=== PATIENT | female | born 1965 | race Hispanic/Latino ===

== ENCOUNTER → 2017-12-20 | Day surgery (SDC) | payer MEDICARE, OTHER ==
[~2017-12-20] MED LIST: ASPIR 8181 MG PO; CARVEDILOL3.125 MG PO; CRESTOR10 MG PO; EFFEXOR XR 3737.5 MG PO; EPHEDRINE SULFATE INJ 50 MG/10 ML SYR ONE; FENTANYL CITRATE/PF 100MCG/2 ML INJ ONE; HUMALOG100 UNIT/1 SC; HYOSCYAMINE SULFATE 0.5 MG/ML AMP ONE; INSULIN PUMP SC; LEVEMIR100 UNIT/1 SC; LEVOTHYROXINE50 MCG PO; LIDOCAINE HCL 2% LOCAL INJ 5 ML SDV VIAL INJ ONE; LOSARTAN POTASS25 MG PO; MIDAZOLAM HCL 2 MG/2 ML VIAL ONE; PANTOPRAZOLE SO40 MG PO; PROPOFOL IV EMULSION 10 MG/ML 50 ML VIAL ONE; RENAGEL800 MG PO; SODIUM CHLORIDE 0.9% 500ML 500 ML ONE; TORSEMIDE20 MG PO; TRADJENTA5 MG PO; VASCEPA PO; VIT D2 PO
--- OUTSIDE RECORDS SUMMARY | 2017-12-20 06:35 | XMS REPORT | Clinical Summary ---
Author Author [facility] [place] [facility] Address Unknown Phone Unavailable Care Team Providers Care Parts Assembler Name Role Phone Kalli Lamas MD PCP Allergies Active Allergy Reactions Severity Noted Date Comments Penicillins Dermatitis High 03/18/2016 Current Medications Prescription Sig. Disp. Refills Start End Date Status Date levothyroxine (SYNTHROID, Take 50 mcg by mouth Active LEVOXYL) 50 mcg tablet every morning. torsemide (DEMADEX) 20 MG Take 20 mg by mouth Active tablet daily. aspirin (ECOTRIN) 81 MG Take 81 mg by mouth Active enteric coated tablet daily. INSULIN ADMIN SUPPLIES Inject 40 Units under the Active SUBQ skin 3 (three) times a day. pantoprazole (PROTONIX) Take 40 mg by mouth Active 40 MG EC tablet daily. losartan (COZAAR) 25 MG Take 25 mg by mouth Active tablet daily. rosuvastatin (CRESTOR) 40 Take 40 mg by mouth Active MG tablet daily. sevelamer (RENVELA) 800 Take 800 mg by mouth 3 Active mg tablet (three) times a day with meals. 3 tablets with meals insulin lispro (HumaLOG Use 35 units with lunch 6 pen 6 08/22/20 Active KwikPen) 100 unit/mL and dinner 17 injection pen insulin DETEMIR (LEVEMIR Use 40 units in the 6 pen 6 08/22/20 Active FLEXPEN) 100 unit/mL (3 morning and 35 units at 17 mL) insulin pen night subcutaneously linagliptin (TRADJENTA) 5 Take 1 tablet (5 mg 90 tablet 1 08/22/20 Active mg tablet total) by mouth daily. 17 pen needle, diabetic 31 Inject 5 x day 500 each 6 08/22/20 Active gauge x 5/16" 17 needleIndications: Type 2 diabetes mellitus with hyperglycemia, with long-term current use of insulin linagliptin (TRADJENTA) 5 Take 5 mg by mouth daily. 08/22/20 Discontin mg tablet 17 ued insulin detemir (LEVEMIR) Inject 35 Units under the 08/22/20 Discontin 100 unit/mL injection skin 2 (two) times a day. 17 ued Active Problems Patient Care Coordination Note 2017 update complete - 2014 oncology report post 10 year uterine cancer on file ; mammogram and cardiology evaluation complete. Problem Noted Date Neuropathy 07/31/2017 Last Assessment & Plan: N. Arterial doppler study reviewed by me shows extensive calcification and TBI in moderate range. CTA in 2016 shows patent aorta and iliac arteries with diffuse plaque. Plan for Neurpathy medication adjustment per primary Trigger finger 07/31/2017 Last Assessment & Plan: Plan for hand referral. ESRD (end stage renal disease) 07/11/2017 Overview: Added automatically from request for surgery [id number] Steal syndrome as complication of dialysis access 201607/10/2017 S/P CABG x 1 201405/22/2017 Anemia Type 2 diabetes mellitus ESRD (end stage renal disease) on dialysis MWF 2013 Last Assessment & Plan: N. Patient with aneurysmal fistula. We discussed the etiology of fistulas including high flow, repeated venipunctures, depth the fistula, and outflow obstruction. We discussed the relative troubles with aneurysms including skin erosion, rupture, thrombosis, difficulty with access, progression, and the disfigurative aspects. We discussed treatment options including expectant management, flow reduction, treatment of outflow lesions, aneurysm reduction with possible recurrence, or abandonment and creation of new access. L AVF early aneusysm. Duplex reviewed by me shows volume flow of 1.9 L/min, mild steal. Not symtpomatic enough to intervene at this time. Will plan to observe her and repeat studies in 6 months. Coronary artery disease History of transfusion Hyperlipidemia Hypothyroidism Hypertension Peripheral vascular disease s/p L leg stent 2014, Left forearm arteries small, Right arm high bifurcation Stroke Uterine cancer 2006 s/p hysterectomy History of cholecystectomy Cataract Retinopathy due to secondary diabetes Encounters Date Type Specialty Care Team Description 12/17/2017 Office Visit Endocrinology Sharita Patel MD Controlled type 2 diabetes mellitus with insulin therapy (Primary Dx); Essential hypertension; History of coronary artery disease; Peripheral vascular disease s/p L leg stent 2014, Left forearm arteries small, Right arm high bifurcation; History of stroke; Acquired hypothyroidism; Retinopathy due to secondary diabetes; ESRD (end stage renal disease) on dialysis MWF 2013; Peripheral sensory neuropathy due to type 2 diabetes mellitus 12/12/2017 Lab Lab Clifford Apodaca MD 11/14/2017 Lab Lab Clifford Apodaca MD 10/16/2017 Documentation Endocrinology Sharita Patel MD 10/16/2017 Telephone Endocrinology Sharita Patel MD 09/14/2017 Documentation Transplant Kristy Rivera Dialysis Liaison Waitlist Update 09/10/2017 Office Visit Orthopedic Surgery Angie Alberto, Trigger middle finger of MD left hand (Primary Dx); Trigger finger of both hands; Trigger middle finger of right hand 09/05/2017 Lab Lab Clifford Apodaca MD 08/22/2017 Office Visit Endocrinology Sharita Patel MD Type 2 diabetes mellitus with hyperglycemia, with long-term current use of insulin (Primary Dx); Retinopathy due to secondary diabetes; Hx of CABG; History of stroke; Peripheral arterial disease; Peripheral sensory neuropathy due to type 2 diabetes mellitus; High triglycerides; Vitamin D deficiency; Hypothyroidism (acquired) 08/08/2017 Lab Lab Javier Peters MD 08/02/2017 Procedure Pass Ophthalmology 07/31/2017 Office Visit Cardiovascular Bob Myers MD ESRD ( end stage renal disease) on dialysis MWF 2013 (Primary Dx); Type 2 diabetes mellitus with other kidney complication; Trigger finger, unspecified finger, unspecified laterality 07/31/2017 Telephone Transplant Shira Shrestha MA Speak to Coordinator 07/25/2017 Telephone Cardiovascular Rachel Dang 07/11/2017 Hospital Radiology Germania Villalobos MD Pain in joint, multiple Encounter sites 07/11/2017 Lab Lab Germania Villalobos MD Pain in joint, multiple sites (Primary Dx); Effusion of hand joint, unspecified laterality 07/11/2017 Transcribe Access Germania Villalobos MD Pain in joint, multiple Orders sites (Primary Dx) 07/11/2017 Telephone Bob Lagos MD 07/11/2017 Prep for Bob Lagos MD ESRD (end stage renal Surgery disease) (Primary Dx) 07/10/2017 Documentation Cardiovascular Bob Myers MD Results 06/21/2017 Hospital Radiology Bob Myers MD ESRD (end stage renal Encounter disease) on dialysis 06/06/2017 Lab Clifford Duke MD 05/22/2017 Office Visit Cardiovascular Bob Myers MD ESRD ( end stage renal disease) on dialysis (Primary Dx) 05/22/2017 Documentation Transplant Kesha Vernon RN 05/17/2017 Telephone Transplant Michela Pierre MA Results 05/09/2017 Lab Clifford Duke MD 04/17/2017 Hospital Radiology Clifford Apodaca MD Type 2 diabetes mellitus Encounter with chronic kidney disease on chronic dialysis, with long-term current use of insulin; ESRD (end stage renal disease) on dialysis 04/17/2017 Telephone Transplant Dennis Nichols MA Inquiry about Appt 04/12/2017 [facility] Radiology Ellis Mariscal MD Fatty liver Encounter 04/11/2017 Lab Clifford Duke MD 04/10/2017 Documentation Transplant Jacob Serrano TXP - OPTUM & MCR AB - RENAL TXP APPRVL 04/05/2017 Transcribe Radiology Ellis Mariscal MD Fatty liver ( Primary Dx) Orders 04/05/2017 Documentation Transplant Kesha Vernon, TALIA 03/27/2017 Orders Only Cardiovascular Ellen Barber MA Complications due to renal dialysis device, implant, and graft, initial encounter (Primary Dx) 03/07/2017 Lab Clifford Duke MD 02/07/2017 Lab Clifford Duke MD 01/30/2017 Telephone Transplant Gillian Venegas MA PRA Kits 01/30/2017 Documentation Transplant Kesha Vernon RN 12/21/2016 Documentation Transplant Kesha Vernon RN 12/19/2016 Hospital Radiology Shona Em MD ESRD (end stage renal Encounter disease) 12/19/2016 Hospital Transplant Clifford Apodaca MD Type 2 diabetes mellitus Encounter with chronic kidney disease on chronic dialysis, with long-term current use of insulin (Primary Dx); ESRD (end stage renal disease) on dialysis 12/19/2016 Hospital Transplant Shona Em MD ESRD (end stage renal Encounter disease) 12/19/2016 Hospital Transplant Shona Em MD ESRD (end stage renal Encounter disease) after 12/19/2016 Family History Medical History Relation Name Comments Cancer Brother Heart disease Father Hypertension Father Liver disease Father Heart disease Maternal Grandfather Diabetes Maternal Grandmother Cancer Mother Diabetes Mother Kidney disease Mother Liver disease Mother Relation Name Status Comments Brother lymphoma Father Maternal Grandfather Maternal Grandmother Mother mother was on dialysis and had kidney cancer Social History Tobacco Use Types Packs/Day Years Used Date Former Smoker Comments: stopped < 10 years ago Sex Assigned at Date Recorded Not on file Last Filed Vital Signs Vital Sign Reading Time Taken Blood Pressure 98/64 12/17/2017 9:44 AM BENDING MACHINE SET UP OPERATOR Pulse 62 12/17/2017 9:44 AM BENDING MACHINE SET UP OPERATOR Temperature 35.7 C (96.2 F) 12/17/2017 9:44 AM BENDING MACHINE SET UP OPERATOR Respiratory Rate 14 07/31/2017 8:40 AM CDT Oxygen Saturation 100% 12/17/2017 9:44 AM BENDING MACHINE SET UP OPERATOR Inhaled Oxygen - - Concentration Weight 74.8 kg (165 lb) 12/17/2017 9:44 AM BENDING MACHINE SET UP OPERATOR Height 157.5 cm (5' 2") 12/17/2017 9:44 AM BENDING MACHINE SET UP OPERATOR Body Mass Index 30.18 12/17/2017 9:44 AM BENDING MACHINE SET UP OPERATOR Plan of Treatment Date Type Specialty Care Team Description 01/29/2018 Appointment Procedural Cardiology Bob Myers MD [address] [place] [address] [phone] 01/29/2018 Appointment Procedural Cardiology Bob Myers MD [address] [place] [address] [phone] 01/29/2018 Office Visit Cardiovascular Bob Myers MD [address] [place] [address] [phone] 04/22/2018 Office Visit Endocrinology Sharita Patel MD [address] [facility] [address] [place] [address] [phone] Health Maintenance Due Date Last Done Comments OPHTHALMOLOGY EXAM 1975 COLONOSCOPY 2015 MAMMOGRAM 2015 INFLUENZA VACCINE 06/05/2017 FOOT EXAM 08/22/2018 08/22/2017, 08/22/2017 PAP SMEAR 12/19/2019 12/19/2016, 02/23/2015 Implants Implanted Type Area Configuration Technician Device Expiration Model / Identifier Date Serial / Lot Device Vasclr Clsr Vasoactive Cardiovasc N/A: N/A 04/04/2018 [id number] / Intstnl Peptd 6fr Angio-Seal - ular / [id number] Implants [id number] Implanted: 06/21/2017 (Quantity not on file) Catheter Angio Delphi Programmer Ii 5fr 65cm Surgical N/A: N/A [facility] PERIPHERAL [id number] Selc Braidd Torque Elliott - [id number] Implants; INTERVENTION / Implanted: 04/12/2017 (Quantity not Expanders; VASCULAR CARMELLA / on file) Extenders; Surgical Wires Catheter Angio Delphi Programmer Ii 5fr Surgical N/A: N/A [facility] PERIPHERAL [id number] 0.035in 65cm Selc Braidd Torque - Implants; INTERVENTION / [id number] Expanders; VASCULAR CARMELLA / Implanted: 04/12/2017 (Quantity not Extenders; on file) Surgical Wires Procedures Procedure Name Priority Date/Time Associated Diagnosis Comments ME INJECT TENDON Routine 09/11/2017 Trigger finger of both Results for this SHEATH/LIGAMENT 11:31 AM BENDING MACHINE SET UP OPERATOR hands procedure are in the results section. after 12/19/2016 Results * POC glucose (12/17/2017 11:51 AM) Only the most recent of 6 results within the time period is included. Component Value Ref Range POC glucose 97Comment: fasting 65 - 100 Specimen Performing Laboratory Blood * POC glycosylated hemoglobin (Hb A1C) (12/17/2017 11:50 AM) Only the most recent of 2 results within the time period is included. Component Value Ref Range POC Hemoglobin A1C 6.1Comment: Fasting % Specimen Performing Laboratory Blood * Hand/Upper Extremity Injection/Arthrocentesis (09/11/2017 11:31 AM) Narrative Angie Alberto MD 09/11/2017 11:31 AM Hand/Upper Extremity Injection/Arthrocentesis Date/Time: 09/10/2017 1:31 PM Consent given by: patient Site marked: site marked Timeout: Immediately prior to procedure a time out was called to verify the correct patient, procedure, equipment, respiratory support technician and site/side marked as required Supporting Documentation Indications: diagnostic and pain Procedure Details Condition: trigger finger Site: Bilateral long finger Preparation: Patient was prepped and draped in the usual sterile fashion Right side: Needle size: 25 G Right long finger medications administered: 40 mg methylPREDNISolone acetate 40 mg/mL; 0.5 mL lidocaine 10 mg/mL (1 %) Patient tolerance: patient tolerated the procedure well with no immediate complications Left side: Needle size: 25 G Left long finger medications administered: 40 mg methylPREDNISolone acetate 40 mg/mL; 0.5 mL lidocaine 10 mg/mL (1 %) Patient tolerance: patient tolerated the procedure well with no immediate complications Platelet Rich Plasma Used: no PRP Used * Single antigen beads (09/05/2017 4:08 PM) Only the most recent of 4 results within the time period is included. Component Value Ref Range Single antigen beads See link below for PDF Lab Report Specimen Performing Laboratory [facility] DEPARTMENT OF PATHOLOGY AND GENOMIC MEDICINE [address] [place] [id number] * XR Hands 3 Vw Bilateral (07/11/2017 1:40 PM) Specimen Performing Laboratory [facility] [address] [place] [address] Narrative EXAMINATION:XR HANDS 3 VW BILATERAL CLINICAL HISTORY:M25.50 Pain in unspecified joint, hands COMPARISON:None. IMPRESSION: There is minimal juxta-articular osteoporosis with no signs of a systemic arthritis.There is vascular calcification. There is no evidence of acute hand fracture or dislocation. There are no radiopaque foreign bodies. [facility]-[id number] Procedure Note Interface, Radiology Results Incoming - 07/11/2017 1:49 PM CDT EXAMINATION: XR HANDS 3 VW BILATERAL CLINICAL HISTORY: M25.50 Pain in unspecified joint, hands COMPARISON: None. IMPRESSION: There is minimal juxta-articular osteoporosis with no signs of a systemic arthritis. There is vascular calcification. There is no evidence of acute hand fracture or dislocation. There are no radiopaque foreign bodies. [facility]-[id number] * Miscellaneous referral test (07/11/2017 12:48 PM) Component Value Ref Range Misc test name CCP IGA Misc test result see note Comment: Miscellaneous [facility] test code [id number] Misc [facility] See Note REFERENCE TESTS RESULT FLAG UNITS INTERVAL CCP Antibodies IgG/IgA 8 units 0 - 19 Negative <20 Weak positive 20 - 39 Moderate positive 40 - 59 Strong positive >59 Performed at: [facility], [address] [place] [id number] Test performed by: [facility] [address] [place], [place] [address] Specimen Performing Laboratory Blood [facility] [address] [place] [address] * Cyclic citrullinated peptide antibody, IgG (07/11/2017 12:48 PM) Component Value Ref Range Cyclic citrullin peptide <0.5 0.0 - 2.9 U/mL Ab Comment: Anti-cyclic citrullinated peptide (Anti-CCP) IgG antibodies are present in 60-80% of patients with rhuematoid arthritis (RA) and have specificity of 95-98%. These autoantibodies may be present in the preclinical phase of thedisease, are associated with future RA development and may be useful in predicting increased severity and erosive disease course. Specimen Performing Laboratory Serum [facility] DEPARTMENT OF PATHOLOGY AND GENOMIC MEDICINE [address] [place] [address] * Sedimentation rate (07/11/2017 12:48 PM) Component Value Ref Range Sedimentation rate 64 (H) 0 - 20 mm/hr Specimen Performing Laboratory Blood [facility] OF PATHOLOGY AND [address] [address] * Rheumatoid factor (07/11/2017 12:48 PM) Component Value Ref Range Rheumatoid factor <10 0 - 13 IU/mL Specimen Performing Laboratory Plasma specimen [facility] PATHOLOGY AND [address] [address] * C-reactive protein (07/11/2017 12:48 PM) Component Value Ref Range CRP <0.30 0.00 - 0.50 mg/dL Specimen Performing Laboratory Plasma specimen [facility] DEPARTMENT OF PATHOLOGY AND GENOMIC MEDICINE [address] [place] [address] * VALENCIA (07/11/2017 12:48 PM) Component Value Ref Range VALENCIA screen Not Detected Not-Detected Specimen Performing Laboratory Blood [facility] DEPARTMENT OF PATHOLOGY AND GENOMIC MEDICINE [address] [place] [address] * IR Angiogram Extremity Bilateral (06/21/2017 12:54 PM) Specimen Performing Laboratory [facility] [address] [place] [address] Narrative Performing Radiologist Lasha Paredes MD Assistants None Anesthesia Type Moderate sedation was administered by the procedure nurse and monitored by the procedure physician for a total [id number]-crmk sedation time of approximately 44 minutes. Lidocaine 1% was also used for local anesthetic. Pre Procedure Diagnosis end-stage renal disease. Arteriograms required for hemodialysis access planning. Post Procedure Diagnosis Status post arch aortogram and bilateral upper extremity arteriograms Procedure 1. Arch aortogram 2. Bilateral upper extremity arteriograms Technique Written informed consent was obtained prior to the procedure. The patient was placed in a supine position and the right groin was sterilely prepared and draped in the routine manner. Lidocaine 1% was used for local anesthetic. Using real-time ultrasound guidance, a 21-gauge micropuncture needle was used to access the right common femoral artery in a retrograde fashion. A 0.018 inch guidewire was advanced centrally through the needle under fluoroscopy. The needle was removed, and a micropuncture sheath system was then placed. The inner dilator and guidewire were then removed, and a 0.035 inch J-wire was advanced through the micropuncture sheath and into the abdominal aorta under fluoroscopy. The micropuncture sheath was removed, and a 5 -Marshallese vascular sheath was then placed. Under ultrasound guidance, documentation of vessel patency, needle access with permanent recording, and reporting are performed followed by placement of a sheath in the right common femoral artery. A right common femoral arteriogram was then performed with injection of contrast through the 5-Marshallese vascular sheath to evaluate the arterial access into the right common femoral artery. A 5-Marshallese pigtail catheter was advanced successfully into the ascending thoracic aorta. An arch aortogram was then performed with injection of contrast in the left anterior oblique projection. Exchange was then made for a 5-Marshallese multipurpose catheter which was used to select the left subclavian artery. Using a 0.035 inch angled Glidewire, both the catheter and guidewire were advanced successfully into the left axillary artery. Left upper extremity arteriograms were then performed with injection of contrast. Using a 0.035 inch J-wire, the multipurpose catheter was advanced into the proximal left brachial artery. Additional left upper extremity arteriograms were then performed with injection of contrast. Arteriograms performed with without compression of the left upper extremity arteriovenous fistula. Using a Glidewire, the multipurpose catheter was then pulled back and redirected to the brachiocephalic artery, and then the right subclavian and right axillary artery. Right upright extremity arteriograms were then performed with injection of contrast. Using the Glidewire, the multipurpose catheter was then advanced into the mid right brachial artery. Additional right upper extremity arteriograms were then performed injection of contrast. The multipurpose catheter was then removed [id number] from the 5-Marshallese vascular sheath. The 5-Marshallese vascular sheath was removed the right common femoral artery, and a 6 Marshallese Angio-Seal closure device was used for hemostasis. The patient tolerated the procedure well. Radiation Dose Ka,r=180 mGy Complications None Specimens Removed None Estimated Blood Loss Less than 1 mL Blood/Blood Products Administered None Grafts/Implants As described in the above report Impression: 1. An arch aortogram demonstrates a normal-appearing thoracic vertebral arteries. There is no great vessel origin stenosis off the thoracic aorta. The brachiocephalic trunk, right subclavian, visualized left common carotid, and left subclavian arteries are widely patent without narrowing. 2. Left upper extremity arteriogram demonstrates no significant axillary or brachial arch stenosis. 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 There is generally diminished filling of the arteries distal to the AV fistula within the left forearm and hand, however there is filling of the radial and ulnar arteries and of the palmar arch. Flow to the digits is diminished. With compression of the fistula, there is significant improved arterial flow to the left forearm and hand, suggesting steal physiology. The ulnar, radial and interosseous arteries are patent without significant stenoses. 3. Right upper extremity arteriograms demonstrate no significant axillary or brachial artery stenosis. There is a high origin of the radial artery on the right side, originating at the proximal humeral diaphysis. Normal location of origin of the ulnar and interosseous arteries. There is good perfusion of the arteries of the hand with a patent palmar arch. No significant stenoses are seen within the brachial , radial, ulnar or interosseous arteries. 4. A right common femoral arteriogram demonstrates a normal-appearing right common femoral artery without stenosis or dissection. Access into the right common femoral was deemed appropriate for placement of an Angio-Seal closure device, which was successfully deployed as described above. [facility]-[id number] Procedure Note [facility], Radiology Results Incoming - 06/21/2017 2:36 PM CDT Performing Radiologist Lasha Paredes MD Assistants None Anesthesia Type Moderate sedation was administered by the procedure nurse and monitored by the procedure physician for a total zeld-ni-ynhm sedation time of approximately 44 minutes. Lidocaine 1% was also used for local anesthetic. Pre Procedure Diagnosis end-stage renal disease. Arteriograms required for hemodialysis access planning. Post Procedure Diagnosis Status post arch aortogram and bilateral upper extremity arteriograms Procedure 1. Arch aortogram 2. Bilateral upper extremity arteriograms Technique Written informed consent was obtained prior to the procedure. The patient was placed in a supine position and the right groin was sterilely prepared and draped in the routine manner. Lidocaine 1% was used for local anesthetic. Using real-time ultrasound guidance, a 21-gauge micropuncture needle was used to access the right common femoral artery in a retrograde fashion. A 0.018 inch guidewire was advanced centrally through the needle under fluoroscopy. The needle was removed, and a micropuncture sheath system was then placed. The inner dilator and guidewire were then removed, and a 0.035 inch J-wire was advanced through the micropuncture sheath and into the abdominal aorta under fluoroscopy. The micropuncture sheath was removed, and a 5 -Marshallese vascular sheath was then placed. Under ultrasound guidance, documentation of vessel patency, needle access with permanent recording, and reporting are performed followed by placement of a sheath in the right common femoral artery. A right common femoral arteriogram was then performed with injection of contrast through the 5-Marshallese vascular sheath to evaluate the arterial access into the right common femoral artery. A 5-Marshallese pigtail catheter was advanced successfully into the ascending thoracic aorta. An arch aortogram was then performed with injection of contrast in the left anterior oblique projection. Exchange was then made for a 5-Marshallese multipurpose catheter which was used to select the left subclavian artery. Using a 0.035 inch angled Glidewire, both the catheter and guidewire were advanced successfully into the left axillary artery. Left upper extremity arteriograms were then performed with injection of contrast. Using a 0.035 inch J-wire, the multipurpose catheter was advanced into the proximal left brachial artery. Additional left upper extremity arteriograms were then performed with injection of contrast. Arteriograms performed with without compression of the left upper extremity arteriovenous fistula. Using a Glidewire, the multipurpose catheter was then pulled back and redirected to the brachiocephalic artery, and then the right subclavian and right axillary artery. Right upright extremity arteriograms were then performed with injection of contrast. Using the Glidewire, the multipurpose catheter was then advanced into the mid right brachial artery. Additional right upper extremity arteriograms were then performed injection of contrast. The multipurpose catheter was then removed [id number] from the 5-Marshallese vascular sheath. The 5-Marshallese vascular sheath was removed the right common femoral artery, and a 6 Marshallese Angio-Seal closure device was used for hemostasis. The patient tolerated the procedure well. Radiation Dose Ka,r=180 mGy Complications None Specimens Removed None Estimated Blood Loss Less than 1 mL Blood/Blood Products Administered None Grafts/Implants As described in the above report Impression: 1. An arch aortogram demonstrates a normal-appearing thoracic vertebral arteries. There is no great vessel origin stenosis off the thoracic aorta. The brachiocephalic trunk, right subclavian, visualized left common carotid, and left subclavian arteries are widely patent without narrowing. 2. Left upper extremity arteriogram demonstrates no significant axillary or brachial arch stenosis. 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 There is generally diminished filling of the arteries distal to the AV fistula within the left forearm and hand, however there is filling of the radial and ulnar arteries and of the palmar arch. Flow to the digits is diminished. With compression of the fistula, there is significant improved arterial flow to the left forearm and hand, suggesting steal physiology. The ulnar, radial and interosseous arteries are patent without significant stenoses. 3. Right upper extremity arteriograms demonstrate no significant axillary or brachial artery stenosis. There is a high origin of the radial artery on the right side, originating at the proximal humeral diaphysis. Normal location of origin of the ulnar and interosseous arteries. There is good perfusion of the arteries of the hand with a patent palmar arch. No significant stenoses are seen within the brachial , radial, ulnar or interosseous arteries. 4. A right common femoral arteriogram demonstrates a normal-appearing right common femoral artery without stenosis or dissection. Access into the right common femoral was deemed appropriate for placement of an Angio-Seal closure device, which was successfully deployed as described above. [facility]-[id number] * PT and PTT (05/22/2017 8:55 AM) Component Value Ref Range INR 1.0 0.8 - 1.2 Comment: Reference interval is for non-anticoagulated patients. Suggested INR therapeutic range for Vitamin K antagonist therapy: Standard Dose (moderate intensity therapeutic range): 2.0 - 3.0 Higher intensity therapeutic range 2.5 - 3.5 Prothrombin time 10.6 9.1 - 12.0 sec aPTT 29 24 - 33 sec Comment: This test has not been validated for monitoring unfractionated heparin therapy. aPTT-based therapeutic ranges for unfractionated heparin therapy have not been established. For general guidelines on Heparin monitoring, refer to the [facility] Directory of Services. Specimen Performing Laboratory Blood [facility] Narrative Performed at:[address] [place], [place] [id number] Maintenance Chief: Gregory Castellano MD, Phone:[phone] * CBC with platelet and differential (05/22/2017 8:55 AM) Only the most recent of 2 results within the time period is included. Component Value Ref Range WBC 7.0 3.4 - 10.8 x10E3/uL RBC 3.77 3.77 - 5.28 x10E6/uL HGB 11.0 (L) 11.1 - 15.9 g/dL HCT 32.4 (L) 34.0 - 46.6 % MCV 86 79 - 97 fL MCH 29.2 26.6 - 33.0 pg MCHC 34.0 31.5 - 35.7 g/dL RDW 16.1 (H) 12.3 - 15.4 % Platelet count 157 150 - 379 x10E3/uL Neutrophils 66 % Lymphocytes 21 % Monocytes 6 % Eosinophils 7 % Basophils 0 % Neutrophils, absolute 4.6 1.4 - 7.0 x10E3/uL Lymphocytes, absolute 1.5 0.7 - 3.1 x10E3/uL Monocytes, absolute 0.4 0.1 - 0.9 x10E3/uL Eosinophils, absolute 0.5 (H) 0.0 - 0.4 x10E3/uL Basophils, absolute 0.0 0.0 - 0.2 x10E3/uL Immature granulocytes 0 % Immature grans (abs) 0.0 0.0 - 0.1 x10E3/uL Specimen Performing Laboratory Blood [facility] Narrative Performed at:[id number] Maintenance Chief: Gregory Castellano MD, Phone:[phone] * Basic metabolic panel (05/22/2017 8:55 AM) Component Value Ref Range Glucose 137 (H) 65 - 99 mg/dL BUN, whole blood 37 (H) 6 - 24 mg/dL Creatinine 6.91 (H) 0.57 - 1.00 mg/dL EGFR Non-Afr. Citizen Of [place] 6 (L) >59 mL/min/1.73 EGFR 7 (L) >59 mL/min/1.73 BUN/creatinine ratio 5 (L) 9 - 23 Sodium 139 134 - 144 mmol/L Potassium 4.9 3.5 - 5.2 mmol/L Chloride 93 (L) 96 - 106 mmol/L CO2 23 18 - 29 mmol/L Calcium 9.2 8.7 - 10.2 mg/dL Specimen Performing Laboratory Blood [facility] Narrative Performed at:[address] [place], [place] [id number] Maintenance Chief: Gregory Castellano MD, Phone:[phone] * PV duplex arterial upper extremity (05/17/2017 3:00 PM) Specimen Performing Laboratory [facility] [address] [place] [address] Narrative PER[facility]HERAL VASCULAR LABORATORY Upper Extremity Arterial Duplex Report [address] [address] Pat.Name:ANGELICA BRAGG.ID:[id number] St.Date: 05/17/2017 Refer.MD:BOB MYERS MD Exam Time: 2:42:00 PMStudy Type:UE Arterial DOBAge:1965,51Y Sex: FEMALE Sonogrphr: Nayely Martinez. Stat.:Outpatient TapeVol: [place], [facility] - 4: 59351 Echo Event ID:[id number] Order ID:[id number] Reason for Study:Left upper extremity numbness and tingling. Left upper extremity AVF, ESRD Race:C SUMMARY: DUPLEX SCAN OBSERVATIONS (59520): LEFT: There is mild heterogeneous plaque in the brachial artery. Irregular hard plaque is visualized in the ulnar and radial arteries. The brachial artery bifurcates at the antecubital fossa.Decreased monophasic Doppler signals are noted in the radial and ulnar arteries. Colorflow is disturbed at the distal to the anastomosis in the brachial artery. DIGITAL PPG ANALYSIS: Compression of AVF AVG RIGHT LEFT PPrd digit waveform Normal Reduced Amplitude 2 Amplitude with AVF compression 7 Please see same day AVF duplex Technically difficult exam due to patient pain tolerance PHYSICIAN INTERPRETATION(83001): 1.<50% stenosis, left brachial, radial, and ulnar arteries 2.Positive physiologic steal study.Left third digit PPG amplitude increases from 2 to 7 mm with AVF compression 3.Decreased monophasic Doppler signals are noted in the left radial and ulnar arteries. MEASUREMENTS: DOPPLER Left Subclavian Mid Subclavian Why408 cm/s Left Axillary Mid Axillary Mid PS 206 cm/s Left Brachial Prox Brachial Prox P 368 cm/s Left Brachial Mid Brachial Mid PS 381 cm/s Left Brachial Dist Brachial Dist P 401 cm/s Radial Prox Radial Prox PSV57 cm/s Left Radial Prox 1 Radial Prox 1 P46 cm/s Left Radial Mid Radial Mid PSV46 cm/s Left Radial Dist Radial Dist PSV57 cm/s Left Ulnar Prox Ulnar Prox PSV60 cm/s Left Ulnar Mid Ulnar Mid PSV 42 cm/s Left Ulnar Dist Ulnar Dist PSV48 cm/s Left Brachial Dist 1 Brachial Dist 1 296 cm/s Signed 05/21/2017 11:41 AM Steffen Johnston MD, RPVI Procedure Note Interface, Radiology Results In - 05/21/2017 11:41 AM CDT PER[facility]HERAL VASCULAR LABORATORY Upper Extremity Arterial Duplex Report [address] [place] [address] Pat.Name: ANGELICA BRAGG Pat.ID: [id number] St.Date: 05/17/2017 Refer.MD: BOB MYERS MD Exam Time: 2:42:00 PM Study Type:UE Arterial Age: 11 1965,51Y Sex: FEMALE Sonogrphr: DEEPALI Martinez Pat. Stat.:Outpatient Tape Vol: TB, CPT - 4: 20058 Echo Event ID:[id number] Order ID: [id number] Reason for Study:Left upper extremity numbness and tingling. Left upper extremity AVF, ESRD Race: C SUMMARY: DUPLEX SCAN OBSERVATIONS (73531): LEFT: There is mild heterogeneous plaque in the brachial artery. Irregular hard plaque is visualized in the ulnar and radial arteries. The brachial artery bifurcates at the antecubital fossa. Decreased monophasic Doppler signals are noted in the radial and ulnar arteries. Colorflow is disturbed at the distal to the anastomosis in the brachial artery. DIGITAL PPG ANALYSIS: Compression of AVF AVG RIGHT LEFT PPrd digit waveform Normal Reduced Amplitude 2 Amplitude with AVF compression 7 Please see same day AVF duplex Technically difficult exam due to patient pain tolerance PHYSICIAN INTERPRETATION(56044): 1. <50% stenosis, left brachial, radial, and ulnar arteries 2. Positive physiologic steal study. Left third digit PPG amplitude increases from 2 to 7 mm with AVF compression 3. Decreased monophasic Doppler signals are noted in the left radial and ulnar arteries. MEASUREMENTS: DOPPLER Left Subclavian Mid Subclavian Mid 220 cm/s Left Axillary Mid Axillary Mid PS 206 cm/s Left Brachial Prox Brachial Prox P 368 cm/s Left Brachial Mid Brachial Mid PS 381 cm/s Left Brachial Dist Brachial Dist P 401 cm/s Radial Prox Radial Prox PSV 57 cm/s Left Radial Prox 1 Radial Prox 1 P 46 cm/s Left Radial Mid Radial Mid PSV 46 cm/s Left Radial Dist Radial Dist PSV 57 cm/s Left Ulnar Prox Ulnar Prox PSV 60 cm/s Left Ulnar Mid Ulnar Mid PSV 42 cm/s Left Ulnar Dist Ulnar Dist PSV 48 cm/s Left Brachial Dist 1 Brachial Dist 1 296 cm/s Signed 05/21/2017 11:41 AM Steffen Johnston MD, RPVI * PV duplex hemodialysis avg avf access (05/17/2017 2:30 PM) Specimen Performing Laboratory [facility] [address] [place] [address] Narrative PERIPHERAL VASCULAR LABORATORY AV Graft - Fistula Report [address] [place], [place] [facility].Name:ANGELICA BRAGG Pat.ID:[id number] .Date: 05/17/2017 Refer.MD:BOB MYERS MD Exam Time: 2:15:00 PMStudy Type:AV Graft - Fistula DOBAge:1965,51Y Sex: FEMALE Sonogrphr: Saima Rojas RVCARRIEat. Stat.:Outpatient TapeVol: TB, CPT - 4: 88623 Echo Event ID:[id number] Order ID:[id number] Reason for Study:Left upper extremity numbness and tingling. Left upper extremity AVF, ESRD Race:C SUMMARY: DUPLEX SCAN OBSERVATIONS: LEFT:The brachiocephalic AVF is well visualized.Disturbed, pulsatile colorflow and Doppler signals are noted in the feeding brachial artery, through the AVF anastomosis and into the draining cephalic vein.Increased colorflow disturbance is noted through the anastomosis. Diameter reduction is noted at the cephalic/axillary confluence with increased velocities and colorflow disturbance. VOLUME FLOW:Left brachial artery 1931 ml/min 1245 on 03/18/2015 Please see same day arterial duplex. PHYSICIAN INTERPRETATION: 1.Volume flow left brachial artery is 1931 ml/min, significantly increased from previous 1245 ml/min on 03/18/2015. 2.<50% juxta-anastomotic stenosis, left brachiocephalic AVF (ratio 1.46) 3.>50% stenosis of the left cephalic/ axillary vein confluence (ratio 3.28) MEASUREMENTS: GRAFT Left Brachial A Mid Brachiocephalic:AV Fistula Brachial A Ige626 cm/s Left Anastomosis Brachiocephalic:AV Fistula Anast SJS281 cm/s Left Cephalic Dist Up Arm Brachiocephalic:AV Fistula Cephalic Dist U 143 cm/s Left Cephalic Mid Up Arm Brachiocephalic:AV Fistula Cephalic Mid Up 108 cm/s Left Cephalic Prox Up Arm Brachiocephalic:AV Fistula Cephalic Prox U 127 cm/s Left Cephalic Shoulder Brachiocephalic:AV Fistula Cephalic Should 119 cm/s Left Ceph/Axillary Confl. Brachiocephalic:AV Fistula Ceph/Axillary C 391 cm/s Left Axillary V Mid Brachiocephalic:AV Fistula Axillary V Gpd848 cm/s Left Axillary V Central Brachiocephalic:AV Fistula Axillary V Cent 124 cm/s Left Subclavian V Mid Brachiocephalic:AV Fistula Subclavian V Mi 139 cm/s Left Subclavian V Central Brachiocephalic:AV Fistula Subclavian V Ce 128 cm/s Signed 05/21/2017 11:47 AM Steffen Johnston MD, RPVI Procedure Note Interface, Radiology Results In - 05/21/2017 11:47 AM CDT PER[facility]HERAL [facility]ASC[facility] LABORATORY AV Graft - Fistula Report [address] [place] [address] Pat.Name: ANGELICA BRAGG Pat.ID: [id number] .Date: 05/17/2017 Refer.MD: BOB MYERS MD Exam Time: 2:15:00 PM Study Type:AV Graft - Fistula Age: 11 1965,51Y Sex: FEMALE Sonogrphr: DEEPALI Martinez Pat. Stat.:Outpatient Tape Vol: TB, CPT - 4: 75725 Echo Event ID:[id number] Order ID: [id number] Reason for Study:Left upper extremity numbness and tingling. Left upper extremity AVF, ESRD Race: C SUMMARY: DUPLEX SCAN OBSERVATIONS: LEFT: The brachiocephalic AVF is well visualized. Disturbed, pulsatile colorflow and Doppler signals are noted in the feeding brachial artery, through the AVF anastomosis and into the draining cephalic vein. Increased colorflow disturbance is noted through the anastomosis. Diameter reduction is noted at the cephalic/axillary confluence with increased velocities and colorflow disturbance. VOLUME FLOW: Left brachial artery 1931 ml/min 1245 on 03/18/2015 Please see same day arterial duplex. PHYSICIAN INTERPRETATION: 1. Volume flow left brachial artery is 1931 ml/min, significantly increased from previous 1245 ml/min on 03/18/2015. 2. <50% juxta-anastomotic stenosis, left brachiocephalic AVF (ratio 1.46) 3. >50% stenosis of the left cephalic/ axillary vein confluence (ratio 3.28) MEASUREMENTS: GRAFT Left Brachial A Mid Brachiocephalic:AV Fistula Brachial A Mid 400 cm/s Left Anastomosis Brachiocephalic:AV Fistula Anast PSV 586 cm/s Left Cephalic Dist Up Arm Brachiocephalic:AV Fistula Cephalic Dist U 143 cm/s Left Cephalic Mid Up Arm Brachiocephalic:AV Fistula Cephalic Mid Up 108 cm/s Left Cephalic Prox Up Arm Brachiocephalic:AV Fistula Cephalic Prox U 127 cm/s Left Cephalic Shoulder Brachiocephalic:AV Fistula Cephalic Should 119 cm/s Left Ceph/Axillary Confl. Brachiocephalic:AV Fistula Ceph/Axillary C 391 cm/s Left Axillary V Mid Brachiocephalic:AV Fistula Axillary V Mid 140 cm/s Left Axillary V Central Brachiocephalic:AV Fistula Axillary V Cent 124 cm/s Left Subclavian V Mid Brachiocephalic:AV Fistula Subclavian V Mi 139 cm/s Left Subclavian V Central Brachiocephalic:AV Fistula Subclavian V Ce 128 cm/s Signed 05/21/2017 11:47 AM Steffen Johnston MD, RPVI * CTA Abdominal Aorta And Bilateral Iliofemoral Runoff W Wo Contrast (2016 3:45 PM) Specimen Performing Laboratory [address] [address] Narrative EXAMINATION:CT ANGIOGRAM ABDOMINAL AORTA AND BILATERAL ILIOFEMORAL RUNOFF W WO CONTRAST CLINICAL HISTORY:E11.22 Type 2 diabetes mellitus with diabetic chronic kidney disease, N18.6 End stage renal disease, transplant evaluation update TECHNIQUE: Multiple CT angiographic images of the abdomen, pelvis, and bilateral lower extremities were obtained during intravenous administration of iodinated contrast. Multiple computerized reformatted images as well as 3-D volume rendered images were also obtained. CT imaging was performed with iterative reconstruction technique and/or automated exposure control to reduce radiation dose. COMPARISON:None. IMPRESSION: CTA: 1.Small atherosclerotic calcifications in the abdominal aorta and its branches. The abdominal aorta is widely patent without evidence of aneurysmal dilation, dissection, or stenosis. 2.The celiac artery, SMA, and MARGARITO are widely patent. 3.The bilateral renal arteries are diminutive throughout their course but grossly patent. 4.Small atherosclerotic calcifications in the bilateral common iliac arteries to the level of the bifurcation. The common iliac, external iliac, and internal iliac arteries are normal caliber, widely patent, and have no evidence of stenosis or dissection. 5.Right lower extremity: In line flow through the common femoral artery into the superficial femoral artery. Multifocal segments of low grade stenosis throughout the superficial femoral artery. The femoral profunda artery is widely patent. Short segment of approximately 50% stenosis at the adductor hiatus extending to the proximal popliteal artery. In-line flow through the popliteal artery into the trifurcation. Calcifications in the calf arteries limit evaluation. The anterior tibial artery is grossly patent throughout its course with flow into the dorsalis pedis artery. Multifocal segments of likely high-grade stenosis and possibly occlusive disease in the peroneal and posterior tibial arteries. Small peripheral flow or reconstitution of flow in the distal peroneal artery with branches supplying the plantar arteries. No definite flow in the mid to distal posterior tibial artery. 6.Left lower extremity: In line flow through the common femoral artery into the superficial femoral and femoral profunda arteries. Multifocal segments of low grade stenosis throughout the superficial femoral and popliteal arteries. The flow in the left calf is similar to the right with peripheral arterial calcifications limiting the evaluation. The anterior tibial artery is grossly patent throughout its course with flow into the dorsalis pedis artery. Multifocal segments of high- grade stenosis and likely occlusive disease in the peroneal and posterior tibial arteries. Small peripheral flow or reconstitution of flow in the distal peroneal artery with branches supplying the plantar arteries. No definite flow in the posterior tibial artery. CT: 1.Minimal dependent atelectasis in the visualized lung bases. 2.Normal liver. The common bile duct is top normal caliber post cholecystectomy. Normal adrenals, spleen, and pancreas. 3.Atrophic [place] kidneys. Simple appearing cyst in the interpolar right kidney. 4.Normal stomach and small bowel. Moderate stool in the colon. Few colonic diverticula without CT evidence of diverticulitis. 5.Small foci of air in the nondependent bladder, recommend correlation for recent catheterization. Infectious etiology is less likely. Hysterectomy. No free fluid. 6.Stippled appearing lesion in the medial right femoral condyle, likely low- grade chondroid lesion. Additional scattered sclerotic foci in the femurs and pelvis, likely small bone islands. [id number] Procedure Note Hm Interface, Radiology Results Incoming - 04/17/2017 4:49 PM CDT EXAMINATION: CT ANGIOGRAM ABDOMINAL AORTA AND BILATERAL ILIOFEMORAL RUNOFF W WO CONTRAST CLINICAL HISTORY: E11.22 Type 2 diabetes mellitus with diabetic chronic kidney disease, N18.6 End stage renal disease, transplant evaluation update TECHNIQUE: Multiple CT angiographic images of the abdomen, pelvis, and bilateral lower extremities were obtained during intravenous administration of iodinated contrast. Multiple computerized reformatted images as well as 3-D volume rendered images were also obtained. CT imaging was performed with iterative reconstruction technique and/or automated exposure control to reduce radiation dose. COMPARISON: None. IMPRESSION: CTA: 1. Small atherosclerotic calcifications in the abdominal aorta and its branches. The abdominal aorta is widely patent without evidence of aneurysmal dilation, dissection, or stenosis. 2. The celiac artery, SMA, and MARGARITO are widely patent. 3. The bilateral renal arteries are diminutive throughout their course but grossly patent. 4. Small atherosclerotic calcifications in the bilateral common iliac arteries to the level of the bifurcation. The common iliac, external iliac, and internal iliac arteries are normal caliber, widely patent, and have no evidence of stenosis or dissection. 5. Right lower extremity: In line flow through the common femoral artery into the superficial femoral artery. Multifocal segments of low grade stenosis throughout the superficial femoral artery. The femoral profunda artery is widely patent. Short segment of approximately 50% stenosis at the adductor hiatus extending to the proximal popliteal artery. In-line flow through the popliteal artery into the trifurcation. Calcifications in the calf arteries limit evaluation. The anterior tibial artery is grossly patent throughout its course with flow into the dorsalis pedis artery. Multifocal segments of likely high-grade stenosis and possibly occlusive disease in the peroneal and posterior tibial arteries. Small peripheral flow or reconstitution of flow in the distal peroneal artery with branches supplying the plantar arteries. No definite flow in the mid to distal posterior tibial artery. 6. Left lower extremity: In line flow through the common femoral artery into the superficial femoral and femoral profunda arteries. Multifocal segments of low grade stenosis throughout the superficial femoral and popliteal arteries. The flow in the left calf is similar to the right with peripheral arterial calcifications limiting the evaluation. The anterior tibial artery is grossly patent throughout its course with flow into the dorsalis pedis artery. Multifocal segments of high- grade stenosis and likely occlusive disease in the peroneal and posterior tibial arteries. Small peripheral flow or reconstitution of flow in the distal peroneal artery with branches supplying the plantar arteries. No definite flow in the posterior tibial artery. CT: 1. Minimal dependent atelectasis in the visualized lung bases. 2. Normal liver. The common bile duct is top normal caliber post cholecystectomy. Normal adrenals, spleen, and pancreas. 3. Atrophic [place] kidneys. Simple appearing cyst in the interpolar right kidney. 4. Normal stomach and small bowel. Moderate stool in the colon. Few colonic diverticula without CT evidence of diverticulitis. 5. Small foci of air in the nondependent bladder, recommend correlation for recent catheterization. Infectious etiology is less likely. Hysterectomy. No free fluid. 6. Stippled appearing lesion in the medial right femoral condyle, likely low- grade chondroid lesion. Additional scattered sclerotic foci in the femurs and pelvis, likely small bone islands. [id number] * Surgical pathology request (04/12/2017 10:26 AM) Component Value Ref Range Surgical pathology report See link below for PDF Lab Report Specimen Performing Laboratory [facility] DEPARTMENT OF PATHOLOGY AND GENOMIC MEDICINE [address] [place] [address] * IR Transjugular Liver Biopsy (04/12/2017 10:10 AM) [place]imen [place] [address] Narrative Procedure: Transjugular liver biopsy Performing Radiologist: Willie Chung MD Assistants: None Anesthesia Type: Under physician supervision, Versed and fentanyl were administered intravenously for moderate sedation. Pulse oximetry, heart rate, and blood pressure were continuously monitored by independent trained observer. The physician spent 24 minutes [id number] sedation time with the patient. Lidocaine 1% was used for local anesthesia. Preprocedure Diagnosis: K76.0 Fatty (change of) livernot elsewhere classified, FATTY LIVER Post Procedure Diagnosis: Status post transjugular liver biopsy, hepatic venogram, and pressure measurements. Technique: Written informed consent was obtained prior to the procedure. The patient was brought to the fluoroscopy suite and placed supine on the table. The right neck was prepped and draped in usual sterile fashion. 1% lidocaine was used for local anesthesia. Under real-time ultrasound guidance, a 21-gauge micropuncture needle was advanced into the right internal jugular vein. Through the needle, a 0.018 inch mandril wire was advanced centrally. The needle was exchanged for a 5 [place]ese micropuncture introducer sheath over the wire. The wire and inner dilator were removed and a 0.035 inch Amplatz wire was advanced through the sheath into the inferior vena cava. The soft tissues were dilated. A 10 Marshallese long vascular sheath was advanced over the wire into the inferior vena cava. Through the sheath, a 5 [place]ese multipurpose catheter was used to select the right hepatic vein. A right hepatic venogram was performed with the injection of contrast. Free hepatic vein pressure, wedge hepatic vein pressure, and right atrial pressures were then measured. The multipurpose catheter was exchanged for a transjugular liver biopsy device over the wire. 4 18-gauge core biopsy specimens were obtained from the right hepatic lobe and sent to pathology for analysis. All instruments were removed and hemostasis was achieved with manual pressure. Radiation Dose: Ka,r=48 mGy Complications: None Specimens Removed: 4 18-gauge core biopsy specimens from the right hepatic lobe. Estimated Blood Loss: Less than 1 mL Blood/Blood Products Administered: None Grafts/Implants: As described in the above report. Findings: 1.Normal hepatic venogram 2.Ultrasound shows an anechoic compressible right internal vein. 3.Measured pressures are as follows: Right atrial pressure: 9 mmHg Free hepatic vein pressure:11 mmHg Wedge hepatic vein pressure:16 mmHg Impression: Uncomplicated transjugular liver biopsy. [facility]-[id number] Procedure Note [facility], Radiology Results Incoming - 04/12/2017 5:45 PM CDT Procedure: Transjugular liver biopsy Performing Radiologist: Willie Chung MD Assistants: None Anesthesia Type: Under physician supervision, Versed and fentanyl were administered intravenously for moderate sedation. Pulse oximetry, heart rate, and blood pressure were continuously monitored by independent trained observer. The physician spent 24 minutes hgdm-he-fqjr sedation time with the patient. Lidocaine 1% was used for local anesthesia. Preprocedure Diagnosis: K76.0 Fatty (change of) liver not elsewhere classified, FATTY LIVER Post Procedure Diagnosis: Status post transjugular liver biopsy, hepatic venogram, and pressure measurements. Technique: Written informed consent was obtained prior to the procedure. The patient was brought to the fluoroscopy suite and placed supine on the table. The right neck was prepped and draped in usual sterile fashion. 1% lidocaine was used for local anesthesia. Under real-time ultrasound guidance, a 21-gauge micropuncture needle was advanced into the right internal jugular vein. Through the needle, a 0.018 inch mandril wire was advanced centrally. The needle was exchanged for a 5 Marshallese micropuncture introducer sheath over the wire. The wire and inner dilator were removed and a 0.035 inch Amplatz wire was advanced through the sheath into the inferior vena cava. The soft tissues were dilated. A 10 Marshallese long vascular sheath was advanced over the wire into the inferior vena cava. Through the sheath, a 5 Marshallese multipurpose catheter was used to select the right hepatic vein. A right hepatic venogram was performed with the injection of contrast. Free hepatic vein pressure, wedge hepatic vein pressure, and right atrial pressures were then measured. The multipurpose catheter was exchanged for a transjugular liver biopsy device over the wire. 4 18-gauge core biopsy specimens were obtained from the right hepatic lobe and sent to pathology for analysis. All instruments were removed and hemostasis was achieved with manual pressure. Radiation Dose: Ka,r=48 mGy Complications: None Specimens Removed: 4 18-gauge core biopsy specimens from the right hepatic lobe. Estimated Blood Loss: Less than 1 mL Blood/Blood Products Administered: None Grafts/Implants: As described in the above report. Findings: 1. Normal hepatic venogram 2. Ultrasound shows an anechoic compressible right internal vein. 3. Measured pressures are as follows: Right atrial pressure: 9 mmHg Free hepatic vein pressure: 11 mmHg Wedge hepatic vein pressure: 16 mmHg Impression: Uncomplicated transjugular liver biopsy. [facility]-[id number] * XR Chest 2 Vw (12/19/2016 9:36 AM) Specimen Performing Laboratory [facility] [address] [place] [address] Narrative EXAMINATION:XR CHEST 2 VW CLINICAL HISTORY:Transplant evaluation update Order diagnosis - End stage renal disease COMPARISON:08/03/2015 TECHNIQUE: Frontal and lateral views of the chest obtained. IMPRESSION: Status-post CABG. Cardiomediastinal silhouette is enlarged, similar to prior. Better inspiratory depth than before. Pulmonary vasculature within normal limits. Mild scarring and/or atelectasis in the left lung base. Lungs and pleural space otherwise clear. Cholecystectomy. 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 IMPRESSION: Status-post CABG. Cardiomediastinal silhouette is enlarged, similar to prior. Better inspiratory depth than before. Pulmonary vasculature within normal limits. Mild scarring and/or atelectasis in the left lung base. Lungs and pleural space otherwise clear. Cholecystectomy. [facility]-[id number] * EKG 12-LEAD (12/19/2016 8:51 AM) Component Value Ref Range Ventricular rate 71 Atrial rate 71 ME interval 158 QRSD interval 102 QT interval 444 QTC interval 482 P axis 1 30 QRS axis 1 -27 T wave axis 28 EKG impression Normal sinus rhythm-Possible Left atrial enlargement-Anterior infarct (cited on or before 29-JUL-2015)-Abnormal ECG-In automated comparison with ECG of 31-JUL-2015 05:30,-T wave inversion no longer evident in Lateral leads-QT has lengthened- Specimen Performing Laboratory [facility] MUSE [address] [place] [id number] * C1Q class 1 & 2 antibody (12/19/2016 8:40 AM) Component Value Ref Range C1Q class 1 & 2 antibody See link below for PDF Lab Report Specimen Performing Laboratory [facility] DEPARTMENT OF PATHOLOGY AND GENOMIC MEDICINE [address] [place] [address] Narrative Annual Patient Meng-cb-OlzbitozkCwcafqd 5 Yellow ACDE (10ml); 2 Red Top (10ml) HLA Auto XM (AXMHL) Single Antigen Bead (SAB) C1q (HC1Q) * TB T-SPOT (12/19/2016 8:40 AM) Component Value Ref Range TB T-SPOT see note Comment: T-SPOT TUBERCULOSIS Nil Control: 0 Panel A: 0 Panel B: 0 Positive Control: TMTC Result: NEGATIVE NOTE: TMTC INDICATES TOO MANY SPOTS TO COUNT SAT INDICATES THE WELL WAS SATURATED RESULTS INTERPRETATION: RESULTS ARE NEGATIVE WHEN (PANEL A-NIL) OR (PANEL B-NIL) <=4 SPOTS, INCLUDING VALUES LESS THAN ZERO. RESULTS ARE POSITIVE WHEN (PANEL A-NIL) OR (PANEL B-NIL) >=8 SPOTS RESULTS ARE BORDERELINE WHEN EITHER (PANEL A-NIL) OR (PANEL B-NIL)=5,6,0R 7. THE TEST IS INVALID WHEN EITHER OF THE FOLLOWING CONDITIONS IS MET: 1.) THE NIL CONTROL HAS >10 SPOTS 2.) THE MITOGEN (POSITIVE CONTROL) HAS <20 SPOTS AND BOTH (PANEL A-NIL) AND (PANEL B-NIL) <=4 SPOTS. M. TUBERCULOSIS INFECTION UNLIKELY, BUT CANNOT BE EXCLUDED ESPECIALLY WHEN: 1. ANY ILLNESS IS CONSISTENT WITH TB DISEASE. 2. LIKELIHOOD OF PROGRESSION TO DISEASE (e.g. DUE TO IMMUNOSUPPRESSION) IS INCREASED. LIMITATIONS: DIAGNOSING OR EXCLUDING TUBERCULOSIS DISEASE, AND ASSESSING THE PROBABILITY OF LTBI, REQUIRES A COMBINATION OF EPIDEMIOLOGICAL, HISTORICAL, MEDICAL, AND DIAGNOSTIC FINDINGS THAT SHOULD BE TAKEN INTO ACCOUNT WHEN INTERPRETING T-SPOT.TB REFER TO THE MOST RECENT CDC GUIDANCE (HTTP: //WWW.CDC.GOV/NCHSTP/TB) FOR DETAILED RECOMMENDATIONS ABOUT DIAGNOSING TB INFECTION (INCLUDING DISEASE) AND SELECTING PERSONS FOR TESTING. 1.) A FALSE NEGATIVE RESULT CAN BE CAUSED BY INCORRECT BLOOD SAMPLE COLLECTION OR IMPROPER HANDLING OF THE SPECIMEN, AFFECTING LYMPHOCYTE FUNCTION 2.) THE PERFORMANCE OF T-SPOT.TB HAS NOT BEEN ADEQUATELY EVALUATED WITH SPECIMENS FROM INDIVIDUALS YOUNGER THAN AGE 17 YEARS, IN WOMEN, AND IN PATIENTS WITH HEMOPHILIA. 3-) A FALSE POSITIVE RESULT WAS OBTAINED FOR T-SPOT.TB WHEN TESTED IN SUBJECTS WITH M. XENOPI, M. KANSASII, AND M. GORDONAE. WHILE ESAT-6 AND CFP-10 ANTIGENS ARE ABSENT FROM BCG STRAINS OF M. BOVIS AND FROM MOST ENVIRONMENTAL MYCOBACTERIA, IT IS POSSIBLE THAT A POSITIVE T-SPOT.TB RESULT MAY BE DUE TO INFECTION WITH M. KANSASII, M. SZULGAI, M. GORDONAE, OR M. MARINUM. ALTERNATIVE TESTS WOULD BE REQUIRED IF THESE INFECTIONS ARE SUSPECTED. 4.) A NEGATIVE TEST RESULT DOES NOT EXCLUDE THE POSSIBILITY OF EXPOSURE TO, OR INFECTION WITH, M. TUBERCULOSIS. PATIENTS WITH RECENT EXPOSURE TO TB INFECTED INDIVIDUALS EXHIBITING A NEGATIVE T-SPOT.TB RESULT SHOULD BE CONSIDERED FOR RETESTING WITHIN 6 WEEKS OR IF OTHER RELEVANT CLINICAL SYMPTOMS INDICATE POSSIBLE INFECTION. 5.) A POSITIVE TEST RESULT DOES NOT RULE IN ACTIVE TB DISEASE; OTHER TESTS SHOULD BE PERFORMED TO CONFIRM THE DIAGNOSIS OF ACTIVE TB DISEASE SUCH SPUTUM SMEAR AND CULTURE, PCR AND CHEST RADIOGRAPHY. 6.) T-SPOT.TB TEST HAS NOT BEEN EVALUATED IN SUBJECTS WHO HAVE RECEIVED >1 MONTH OF ANTI-TB THERAPY. 7. ) REFRIGERATED AND FROZEN SAMPLES ARE NOT RECOMMENDED FOR USE WITH T=SPOT.TB TEST. Performed by: [facility] Molecular Tuberculosis Laboratory [facility] ([id number]) [place], [place] [address] Specimen Performing Laboratory [facility] [address] [place] [address] * HLA autologous crossmatch, AHG (12/19/2016 8:40 AM) Component Value Ref Range HLA autologous crossmatch See link below for PDF Lab Report Specimen Performing Laboratory [facility] DEPARTMENT OF PATHOLOGY AND GENOMIC MEDICINE [address] [place] [address] [facility] Annual Patient Vytx-du-YmitcyxrhGsvyhmy 5 Yellow ACDE (10ml); 2 Red Top (10ml) HLA Auto XM (AXMHL) Single Antigen Bead (SAB) C1q (HC1Q) * Hepatitis B surface Ab, quantitative (12/19/2016 8:40 AM) Component Value Ref Range Hepatitis B surface Ab 547.41 IU/L Comment: The anti-HBs is greater than or equal to 10 IU/L. This patient has either had an antibody response to HBV vaccination, received a transfusion, or has recovered from HBV infection. This patient should be considered immune to hepatitis B. An anti-HBs result greater than or equal to 10 IU/L implies immunity. For post-vaccination antibody testing guidelines for the general public refer to MMWR October 27, 2005/Vol. 54(No. 16);1-23, and for healthcare workers refer to MMWR October 24, 2013/Vol. 62(No. 10);1-19. Reference Interval: anti-HBs 9.99 IU/L or less ....... Negative 10.00 IU/L or greater .... Positive Results greater than 1,000.00 IU/L are reported as greater than 1,000.00 IU/L. Performed by [facility], [address] [place] [address] [email or web address], Ramiro Delarosa MD - Lab. Director Specimen Performing Laboratory [facility] [address] [place] [address] * Estimated GFR (12/19/2016 8:40 AM) Component Value Ref Range GFR Non Af Amer 7 (A) mL/min/1.73 m2 GFR Af Amer 8 (A) mL/min/1.73 m2 Comment: Chronic kidney disease: <60 mL/min/1.73m2 Kidney failure: <15 mL/min/1.73m2 The estimated GFR is calculated from the IDMS-traceable Modification of Diet in Renal Disease Equation. The accuracy of the calculation is poor when the creatinine is normal. Calculated values >90 mL/min/1.73m2 are not reported. This equation has not been validated in children (<18 years), women, the elderly (>70 years), or ethnic groups other than Caucasians and Americans. Specimen Performing Laboratory Plasma specimen [facility] [place] [address] * Hepatitis C antibody (12/19/2016 8:40 AM) Component Value Ref Range Hepatitis C Ab Non-reactive Non-reactive Specimen Performing Laboratory Blood [facility] [place] [address] * Cytomegalovirus Ab, IgM (12/19/2016 8:40 AM) Component Value Ref Range Cytomegalovirus Ab, IgM NegativeComment: Negative: CMV IgM antibodies were Negative not detected. Specimen Performing Laboratory Serum [facility] [place] [address] * Hepatitis B core antibody total (12/19/2016 8:40 AM) Component Value Ref Range Hepatitis B core total Ab Non-reactive Non-reactive Specimen Performing Laboratory Blood [facility] [place] [address] * Hepatitis C virus quantitative by PCR (12/19/2016 8:40 AM) Component Value Ref Range Hepatitis C quantitative, Not-Detected Not-Detected IU/mL PCR Hepatitis C quantitative, See link below for PDF Lab ReportComment: Case PCR Number: [id number] Specimen Performing Laboratory Blood [facility] [place] [address] * C-peptide (12/19/2016 8:40 AM) Component Value Ref Range C-peptide 15.0 (H) 1.1 - 4.4 ng/mL Specimen Performing Laboratory Plasma specimen [facility] [place] [address] * HIV 1, 2 antibody (12/19/2016 8:40 AM) Component Value Ref Range HIV 1, 2 antibody Non-reactive Non-reactive Comment: Starting from February 01 2016, 4th generation HIV screening and confirmation assays are in use at [facility], consistent with the CDC-recommended algorithm. The screening test detects antibodies to HIV-1, HIV-2 and the p24 antigen. Positive screening results will be automatically reflexed to a HIV-1/HIV-2 differentiation assay. Indeterminant HIV-1 results will be further automatically reflexed to a nucleic acid test for detection of acute infection. Western blot will no longer be performed as a confirmation test. For a quick reference guide on the testing algorithm, please refer to: http://stacks.cdc.gov/view/cdc/24731. Specimen Performing Laboratory Blood [facility] DEPARTMENT OF PATHOLOGY AND GENOMIC MEDICINE [address] [place] [address] * Hepatitis B surface antibody (12/19/2016 8:40 AM) Component Value Ref Range Hepatitis B surface Ab Reactive (A) Non-reactive Specimen Performing Laboratory Blood [facility] [place] [address] * Hepatitis B surface antigen (12/19/2016 8:40 AM) Component Value Ref Range Hepatitis B surface Ag Non-reactive Non-reactive Specimen Performing Laboratory Blood [facility] DEPARTMENT OF PATHOLOGY AND GENOMIC MEDICINE [address] [place] [address] * Cytomegalovirus Ab, IgG (12/19/2016 8:40 AM) Component Value Ref Range Cytomegalovirus Ab, IgG NegativeComment: Negative; No CMV IgG antibodies Negative were detected. Specimen Performing Laboratory Serum [facility] DEPARTMENT OF PATHOLOGY AND GENOMIC MEDICINE [address] [place] [address] * Partial thromboplastin time (12/19/2016 8:40 AM) Component Value Ref Range PTT 29.6 23.0 - 36.0 sec Comment: PTT therapeutic range for unfractionated heparin is 61.0-112.0 seconds which corresponds to Anti-Xa 0.3-0.7 U/ml. Specimen Performing Laboratory Blood [facility] PATHOLOGY [facility] GENOMIC MEDICINE [address] [place] [address] * Prothrombin time with INR (12/19/2016 8:40 AM) Component Value Ref Range Prothrombin time 14.4 12.0 - 15.0 sec INR 1.1 Comment: The International Normalized Ratio (INR) is a therapeutic monitoring tool for patients who are stable on oral anticoagulant therapy. An INR of 2.0-3.0 is suggested for deep vein thrombosis/pulmonary embolism. Specimen Performing Laboratory Blood [facility] DEPARTMENT OF PATHOLOGY AND [facility] MEDICINE [address] [place] [address] * Triglycerides (12/19/2016 8:40 AM) Component Value Ref Range Triglycerides 308 (H) <150 mg/dL Specimen Performing Laboratory Plasma specimen [facility] DEPARTMENT OF PATHOLOGY AND [facility] MEDICINE [address] [place] [address] * Phosphorus level (12/19/2016 8:40 AM) Component Value Ref Range Phosphorus 5.3 (H) 2.4 - 4.5 mg/dL Specimen Performing Laboratory Plasma specimen [facility] DEPARTMENT OF PATHOLOGY AND GENOMIC MEDICINE [address] [place] [address] * Parathyroid hormone (12/19/2016 8:40 AM) Component Value Ref Range PTH 402 (H) 15 - 65 pg/mL Specimen Performing Laboratory Blood [facility] DEPARTMENT PATHOLOGY AND [address] [address] * LDH (12/19/2016 8:40 AM) Component Value Ref Range LDH 168 87 - 225 U/L Specimen Performing Laboratory Plasma specimen [facility] DEPARTMENT PATHOLOGY [address] [address] * Hemoglobin A1c (12/19/2016 8:40 AM) Component Value Ref Range Hemoglobin A1C 8.5 (H) 4.0 - 5.6 % Comment: HbA1c cutoffs for diagnosing diabetes: 4.0% - 5.6%=normal 5.7% - 6.4%=increased risk for diabetes (prediabetes) >=6.5%=diabetes Goals for glycemic control (ADA 2016) < 7.0% Target for non adults with diabetes. More or less stringent targets may be appropriate for individual patients. <7.5% Target for Children and adolescents with type 1 diabetes. Specimen Performing Laboratory Blood [facility] DEPARTMENT OF PATHOLOGY AND GENOMIC MEDICINE [address] [place] [address] * Cholesterol (12/19/2016 8:40 AM) Component Value Ref Range Cholesterol 76 <200 mg/dL Specimen Performing Laboratory Plasma specimen [facility] DEPARTMENT PATHOLOGY AND [facility] MEDICINE [address] [place] [address] * Comprehensive metabolic panel (12/19/2016 8:40 AM) Component Value Ref Range Sodium 137 135 - 148 mEq/L Potassium 4.2 3.5 - 5.0 mEq/L Chloride 92 (L) 98 - 112 mEq/L CO2 27 24 - 31 mEq/L Anion gap 18 (H) 7 - 15 mEq/L Comment: Starting from February , anion gap calculation no longer incorporates potassium. Please note the change. BUN 39 (H) 6 - 20 mg/dL Creatinine 6.3 (H) 0.5 - 0.9 mg/dL Glucose 191 (H) 65 - 99 mg/dL Calcium 8.9 8.3 - 10.2 mg/dL Protein 7.2 6.3 - 8.3 g/dL Comment: [place] 4.6-7.0 g/dL 1 week 4.4-7.6 g/dL 7 months-1year 5.1-7.3 g/dL 1-2 years 5.6-7.5 g/dL >3 years 6.0-8.0 g/dL 18-150 6.3-8.3 g/dL Albumin 3.2 (L) 3.5 - 5.0 g/dL A/G ratio 0.8 0.7 - 3.8 Alkaline phosphatase 87 35 - 104 U/L AST 39 (H) 10 - 35 U/L ALT 23 5 - 50 U/L Total bilirubin 0.4 0.0 - 1.2 mg/dL Specimen Performing Laboratory Plasma specimen [facility] DEPARTMENT OF PATHOLOGY AND GENOMIC MEDICINE [address] [place] [address] after 12/19/2016 Insurance Payer Benefit Subscriber ID Type Phone Address Plan / Group MEDICARE MEDICARE xxxxxxxxxx Medicare [place], [place] PART A AND B [facility] xxxxxxxxx HMO/PPO THCARE CHOICE/CHO ICE + ANGELICA BRAGG Transplant Self 1965 Home: [address] [place] [address]
--- NOTE | 2017-12-20 11:09 | Operative Report ---
DATE OF PROCEDURE: December 20, 2017 REFERRING PHYSICIAN: Dr. Kalli Mera PROCEDURES PERFORMED 1. Esophagogastroduodenoscopy with biopsies. 2. Colonoscopy with polypectomy and biopsies. INDICATIONS FOR EGD: Upper abdominal pain and excessive belching. INDICATIONS FOR COLONOSCOPY: Colorectal cancer screening and personal history of colon polyps. MEDICATION: Patient was done under MAC. Please see anesthesiologist's note. PROCEDURE: With the patient in the left lateral decubitus position, the flexible fiberoptic Olympus gastroscope was introduced into the esophagus under direct visualization without any difficulty. There was some patchy erythema noted in the distal esophagus. The scope was then advanced with ease into the stomach. Mucosa overlying the antrum and the body revealed some patchy erythema and mild to moderate edema, and biopsies were obtained and sent to stain for H. pylori. Minute hyperplastic appearing polyps were noted in the body of the stomach. Some were partially excised with the cold biopsy forceps. The pylorus appeared to be of normal contour and shape. It was intubated with ease. The scope was advanced all the way to the 2nd portion of the duodenum. An approximately 9 mm sessile flat lesion was noted in the proximal aspect of the ascending colon proximal to the ampulla that was biopsied. The duodenal bulb appeared to be within normal limits. The scope was then withdrawn back into the stomach and retroflexed. The mucosa overlying the fundus and the cardia appeared to be within normal limits. The scope was then straightened out. The stomach was decompressed. The scope was subsequently withdrawn. Patient tolerated the procedure well. IMPRESSION 1. Distal esophagitis, mild. 2. Gastritis, biopsied. Biopsies sent to stain for Helicobacter pylori. 3. Gastric polyps, some partially excised with the cold biopsy forceps. 4. Approximately 9 mm sessile polypoid lesion in the proximal 2nd portion proximal to the ampulla, biopsied. PLAN: Follow up histology. Initiate Protonix 40 mg 1 p.o. q.a.m. and a.c. Patient was then turned around. After adequate lubrication of the anal canal, a flexible fiberoptic Olympus colonoscope was inserted into the rectum with ease and advanced all the way to the cecum. It was then withdrawn slowly. Mucosa overlying the cecum and ascending colon appeared to be within normal limits. One polyp was snared from the transverse colon. The mucosa overlying the descending and the sigmoid revealed some patchy mild inflammatory changes. Multiple random biopsies were obtained. Some diverticular disease was noted in the distal descending and the sigmoid colon. One polyp was hot biopsied from the sigmoid colon. One polyp was hot biopsied from the rectum. The scope was then retroflexed into the distal rectum, and the area around the dentate line grossly appeared to be within normal limits. The scope was then straightened out. The rectosigmoid area, as well as the distal rectal area were decompressed. The scope was subsequently withdrawn. Patient tolerated the procedure well. IMPRESSION 1. Transverse colon polyp, snared. 2. Mild patchy left-sided colitis. 3. Diverticulosis. 4. Sigmoid colon polyp, hot biopsied. 5. Rectal polyp, hot biopsied. PLAN: Follow up histology. Initiate VSL #3 one p.o. b.i.d. Patient will need a followup colonoscopy in 3 years. Job#: [id number] RI cc:KALLI MERA MD
== END | disposition home or self-care (01) ==
LOC: OR 06:33
PROVIDERS: ATTEND Internal Medicine Gastroenterology
DX: Z12.11 Encounter for screening for malignant neoplasm of colon (principal); D12.5 Benign neoplasm of sigmoid colon; K62.1 Rectal polyp; K31.7 Polyp of stomach and duodenum; K29.70 Gastritis, unspecified, without bleeding; K51.50 Left sided colitis without complications; K21.9 Gastro-esophageal reflux disease without esophagitis; K20.9 Esophagitis, unspecified; K31.9 Disease of stomach and duodenum, unspecified; K57.30 Diverticulosis of large intestine without perforation or abscess without bleeding; I25.810 Atherosclerosis of coronary artery bypass graft(s) without angina pectoris; E03.9 Hypothyroidism, unspecified; E11.22 Type 2 diabetes mellitus with diabetic chronic kidney disease; I13.2 Hypertensive heart and chronic kidney disease with heart failure and with stage 5 chronic kidney disease, or end stage renal disease; N18.6 End stage renal disease; I50.9 Heart failure, unspecified; I69.398 Other sequelae of cerebral infarction; R41.3 Other amnesia; Z01.810 Encounter for preprocedural cardiovascular examination; Z79.4 Long term (current) use of insulin; Z99.2 Dependence on renal dialysis; Z68.30 Body mass index [BMI] 30.0-30.9, adult; Z95.1 Presence of aortocoronary bypass graft
CPT/HCPCS: 36415; 43239; 45384; 45385; 82948; 84132; 88305; 88312; 93005; J1980; J2001; J2250; J7040; 45380

== ENCOUNTER → 2017-12-25 | Outpatient (CLI) | payer MEDICARE, OTHER ==
[~2017-12-25] MED LIST changes: -EPHEDRINE SULFATE INJ 50 MG/10 ML SYR ONE; -FENTANYL CITRATE/PF 100MCG/2 ML INJ ONE; -HYOSCYAMINE SULFATE 0.5 MG/ML AMP ONE; -LIDOCAINE HCL 2% LOCAL INJ 5 ML SDV VIAL INJ ONE; -MIDAZOLAM HCL 2 MG/2 ML VIAL ONE; -PROPOFOL IV EMULSION 10 MG/ML 50 ML VIAL ONE; -SODIUM CHLORIDE 0.9% 500ML 500 ML ONE
--- NOTE | 2017-12-25 11:56 | Diagnostic Imaging Report ---
PROCEDURE:ABDOMINAL ULTRASOUND COMPARISON:CT, CT ABDOMEN/PELVIS WO, 10/11/2011, 17:41. INDICATIONS:Abdomen Pain, feels like pulling when she turns, localized to right and left upper quadrants FINDINGS: Liver: 18.1 cm. Normal hepatic parenchymal echogenicity. No focal mass. Main portal vein: 0.9 cm. Hepatopetal flow. Gallbladder: Absent Common Bile Duct: 0.5 cm. No echogenic filling defect. Sonographic Garcia's sign: Negative Right kidney: 10.6 cm. No solid mass, echogenic calculi, or hydronephrosis. Normal parenchymal echogenicity. 1.8 x 1.7 x 1.8 cm cystic anechoic lesion in the interpolar region Left kidney: 9.2 cm. No solid or cystic mass or hydronephrosis. Normal parenchymal echogenicity. 0.5 cm echogenic, shadowing focus in the interpolar region Spleen: 12.4 cm. No focal lesions. Pancreas: The visualized portions of the neck and proximal body are normal. Inferior vena cava: Normal. Aorta: Normal. Ascites: None. CONCLUSION: 1. mild to moderate hepatomegaly. No focal lesions. 2. 0.5 cm nonobstructing calculus in the interpolar region of the left kidney. 3. 1.8 cm simple cyst in the interpolar region of the right kidney. Bladimir Schaefer M.D. Dictated by: Bladimir Schaefer M.D. on 12/25/2017 at 11:55 Electronically approved by: Bladimir Schaefer M.D. on 12/25/2017 at 11:55
== END ==
LOC: US 08:23
PROVIDERS: ATTEND Internal Medicine Gastroenterology
DX: R10.9 Unspecified abdominal pain (principal)
CPT/HCPCS: 76700

== ENCOUNTER → 2019-01-22 | Day surgery (SDC) | payer MEDICARE, OTHER ==
[2019-01-20 12:52] LABS: INR 0.92; PARTIAL THROMBOPLASTIN TIME 27.6 seconds (23.8-35.5); PROTHROMBIN TIME 12.9 seconds (11.9-14.5)
[~2019-01-22] MED LIST changes: +BACTRIM DS TAB1 EACH PO; +FENTANYL CITRATE/PF 100MCG/2 ML INJ ONE; +HUMULIN R100 UNIT/2 SQ; +INSULIN REGULAR, HUMAN 100 UNIT/1 ML 3ML VIAL ONE; +MAGNESIUM OXID400 MG PO; +METOCLOPRAMIDE HCL 10 MG/2ML VIAL ONE; +MIDAZOLAM HCL 2 MG/2 ML VIAL ONE; +MYCOPHENOLATE250 MG PO; +PREDNISONE5 MG PO; +PROPOFOL IV EMULSION 10 MG/ML 50 ML VIAL ONE; +TACROLIMUS1 MG PO; +VITAMIN D10000 UNIT PO
--- OUTSIDE RECORDS SUMMARY | 2019-01-22 07:58 | XMS REPORT ---
[facility] Address Unknown Phone Unavailable Care Team Providers Care Planning Director Name Role Phone PEDRO LEON Unavailable Unavailable Payers Payer Name Policy Type Policy Number Effective Date Expiration Date Problems This patient has no known problems. Allergies, Adverse Reactions, Alerts Allergy Name Allergy Type Status Severity Reaction(s) Onset Date Inactive Date Treating Clinician Comments Penicillins DA Active U 2014-03-02 00:00:00 Medications This patient has no known medications. Results Test Description Test Time Test Comments Text Results Atomic Results Result Comments US ABDOMEN COMPLETE [place] [address] Patient Name: ANTONI WALTERS MR #: [id number] : 1965 Age/Sex: 52/F Req #: [id number] Adm Physician: Ordered by: PEDRO LEON MD Report #: [id number] Location: US Room/Bed: Procedure: [id number] US/US ABDOMEN COMPLETE Exam Date: Exam Time: REPORT STATUS: Signed PROCEDURE: ABDOMINAL ULTRASOUND COMPARISON: CT, CT ABDOMEN/PELVIS WO, 10/11/2011, 17:41. INDICATIONS: Abdomen Pain, feels like pulling when she turns, localized to right and left upper quadrants FINDINGS: Liver: 18.1 cm. Normal hepatic parenchymal echogenicity. No focal mass. Main portal vein: 0.9 cm. Hepatopetal flow. Gallbladder: Absent Common Bile Duct: 0.5 cm. No echogenic filling defect. Sonographic Garcia's sign: Negative Right kidney: 10.6 cm. No solid mass, echogenic calculi, or hydronephrosis. Normal parenchymal echogenicity. 1.8 x 1.7 x 1.8 cm cystic anechoic lesion in the interpolar region Left kidney: 9.2 cm. No solid or cystic mass or hydronephrosis. Normal parenchymal echogenicity. 0.5 cm echogenic, shadowing focus in the interpolar region Spleen: 12.4 cm. No focal lesions. Pancreas: The visualized portions of the neck and proximal body are normal. Inferior vena cava: Normal. Aorta: Normal. Ascites: None. CONCLUSION: 1. mild to moderate hepatomegaly. No focal lesions. 2. 0.5 cm nonobstructing calculus in the interpolar region of the left kidney. 3. 1.8 cm simple cyst in the interpolar region of the right kidney. Gini Schaefer M.D. Dictated by: Gini Schaefer M.D. on 12/25/2017 at 11:55 Electronically approved by: Gini Schaefer M.D. on 12/25/2017 at 11:55 Dictated By: GINI SCHAEFER MD [id number] Transcribed By: ALKA on 12/25/17 1151 COPY TO: PEDRO LEON MD
[2019-01-22 12:20] VITALS: BP 115/47
--- NOTE | 2019-01-22 13:13 | Operative Report ---
DATE OF PROCEDURE: 01/22/2019 SURGEON: Tin Carbajal MD PROCEDURES: Esophagogastroduodenoscopy with pyloric channel stricture balloon dilatation. INDICATIONS FOR PROCEDURE: Excessive belching, nausea, and vomiting. MEDICATIONS: The patient was done under MAC, please see anesthesiologist's note. PROCEDURE IN DETAIL: With the patient in left lateral decubitus position, a flexible fiberoptic Olympus gastroscope was introduced into the esophagus under direct visualization without any difficulty. There was some patchy erythema noted in distal esophagus. The scope was then advanced with ease into the stomach. Mucosa overlying the antrum and the body revealed some patchy erythema and [id number] edema and biopsies were obtained and sent to stain for H pylori. Several hyperplastic-appearing polyps were noted in the body of the stomach, some were partially excised with cold biopsy forceps. There was a pyloric stricture noted that was dilated to size 20 mm per TTS balloon dilators. The scope was then advanced with ease all the way to the second portion of the duodenum. Biopsies were obtained from the proximal second portion and duodenal bulb to rule out sprue. The scope was then withdrawn back into the stomach and retroflexed and mucosa overlying the fundus and cardia appeared to be within normal limits. The scope was then straightened out, it was subsequently withdrawn. The patient tolerated the procedure well. IMPRESSION: 1. Distal esophagitis, mild. 2. Gastritis, biopsied. Biopsies sent to stain for Helicobacter pylori. 3. Gastric polyps, body, hyperplastic appearing, some partially excised with cold biopsy forceps. 4. Pyloric channel stricture, dilated to size 20 mm per TTS balloon dilators. 5. Rule out sprue. PLAN: Follow up histology. Increase Protonix to 40 mg one p.o. a.c. b.i.d. Tin Carbajal MD [facility] /[id number] cc: Kalli Lamas MD
== END | disposition home or self-care (01) ==
LOC: OR 07:56
PROVIDERS: ATTEND Internal Medicine Gastroenterology
DX: K31.1 Adult hypertrophic pyloric stenosis (principal); K29.70 Gastritis, unspecified, without bleeding; I10 Essential (primary) hypertension; K31.7 Polyp of stomach and duodenum; R00.1 Bradycardia, unspecified; I44.4 Left anterior fascicular block; K20.9 Esophagitis, unspecified; Z94.0 Kidney transplant status; E11.51 Type 2 diabetes mellitus with diabetic peripheral angiopathy without gangrene; Z86.73 Personal history of transient ischemic attack (TIA), and cerebral infarction without residual deficits; Z85.42 Personal history of malignant neoplasm of other parts of uterus; E78.2 Mixed hyperlipidemia; I25.10 Atherosclerotic heart disease of native coronary artery without angina pectoris; Z88.0 Allergy status to penicillin; Z79.82 Long term (current) use of aspirin; Z79.899 Other long term (current) drug therapy; Z79.4 Long term (current) use of insulin; Z79.52 Long term (current) use of systemic steroids
CPT/HCPCS: 36415 ×2; 43239; 43245; 82948; 85610; 85730; 88305; 88312; 93005; C1726; J2250; J2704; J2765; 43235; 43450

== ENCOUNTER → 2020-03-19 | Outpatient (CLI) | payer MEDICARE ==
[~2020-03-19] MED LIST changes: -FENTANYL CITRATE/PF 100MCG/2 ML INJ ONE; -INSULIN REGULAR, HUMAN 100 UNIT/1 ML 3ML VIAL ONE; +IOPAMIDOL 370 MG/ML 200 ML INFUS..BTL INJ ONE; -METOCLOPRAMIDE HCL 10 MG/2ML VIAL ONE; -MIDAZOLAM HCL 2 MG/2 ML VIAL ONE; -PROPOFOL IV EMULSION 10 MG/ML 50 ML VIAL ONE; +SODIUM CHLORIDE 0.9% 500ML 500 ML ONE; +SODIUM CHLORIDE 0.9% 50ML 50 ML ONE
[2020-03-19 09:07] LABS: CREATININE, SERUM 1.2 mg/dL (0.57-1.11)
--- NOTE | 2020-03-19 10:34 | Diagnostic Imaging Report ---
EXAM: CT Abdomen and Pelvis WITH intravenous contrast INDICATION: Abdominal pain COMPARISON: None. TECHNIQUE: Abdomen and pelvis were scanned utilizing a multidetector helical scanner from the lung base to the pubic symphysis after administration of IV contrast. Coronal and sagittal reformations were obtained. Routine protocol was performed. Scan was performed during portal venous phase. IV CONTRAST: 100mL of Isovue 370 ORAL CONTRAST: Water RADIATION DOSE: Total DLP: 679 mGy*cm Dose modulation, iterative reconstruction, and/or weight based adjustment of the mA/kV was utilized to reduce the radiation dose to as low as reasonably achievable. FINDINGS: LOWER THORAX: Normal. HEPATOBILIARY: Mild diffuse hepatic steatosis. No focal liver lesion. No biliary ductal dilation. Status post cholecystectomy. SPLEEN: No splenomegaly. PANCREAS: No focal masses or ductal dilatation. ADRENALS: No adrenal nodules. KIDNEYS/URETERS: Atrophic bilateral kidneys. Transplant kidney in the right lower quadrant demonstrates normal enhancement. No renal calculi or hydronephrosis. PELVIC ORGANS/BLADDER: Unremarkable. PERITONEUM / RETROPERITONEUM: No free air or fluid. LYMPH NODES: No lymphadenopathy. VESSELS: Moderate scattered atherosclerotic calcifications of the nonaneurysmal abdominal aorta and major branches. GI TRACT: Mild diverticulosis. No CT evidence of diverticulitis. No abnormal bowel thickening. No bowel obstruction. BONES AND SOFT TISSUES: Unremarkable. IMPRESSION: No acute findings in the abdomen or pelvis. Mild diffuse hepatic steatosis. Unremarkable right lower quadrant transplant kidney. Signed by: Lynette Elizabeth MD on 03/19/2020 10:31 AM
== END ==
LOC: CT 08:29
PROVIDERS: ATTEND Internal Medicine Gastroenterology
DX: R10.84 Generalized abdominal pain (principal)
CPT/HCPCS: 36415; 74177; 82565; 84520; J7040; Q9967

== ENCOUNTER → 2021-10-26 | Day surgery (SDC) | payer BC, MEDICARE ==
[2021-10-24 13:51] LABS: BASOPHILS # (AUTO) 0.1 (0.0-0.1); BASOPHILS % 0.9 % (0.0-1.0); EOSINOPHILS # (AUTO) 0.1 (0.0-0.4); EOSINOPHILS % 1.2 % (0.0-6.0); HEMOGLOBIN 14.1 g/dL (12.0-16.0); LYMPHOCYTES # (AUTO) 0.5 (1.0-3.2); LYMPHOCYTES % 8.4 % (18.0-39.1); MEAN CORPUSCULAR HEMOGLOBIN 25.5 pg (28-32); MEAN CORPUSCULAR HGB CONC 28.8 g/dL (31-35); MEAN CORPUSCULAR VOLUME 88.8 fL (81-99); MONOCYTES # (AUTO) 0.7 (0.2-0.8); MONOCYTES % 10.5 % (4.4-11.3); NEUTROPHILS # (AUTO) 5.1 (2.1-6.9); NEUTROPHILS % 78.7 % (38.7-80.0); PLATELET COUNT 129 x10e3/uL (140-360); RED BLOOD COUNT 5.52 x10e6/uL (3.6-5.1); RED CELL DISTRIBUTION WIDTH 15.6 % (11.7-14.4)
[~2021-10-26] MED LIST changes: +ASPIRIN81 MG PO; +COLESTIPOL HCL1 GM PO; -IOPAMIDOL 370 MG/ML 200 ML INFUS..BTL INJ ONE; +LIDOCAINE HCL 2% LOCAL INJ 5 ML SDV VIAL INJ ONE; +NOVOLIN N100 UNIT/1 SC; +NOVOLOG MI100 UNIT/1 SC; +PLAVIX75 MG PO; +PROPOFOL IV EMULSION 10 MG/ML 20 ML VIAL ONE; -SODIUM CHLORIDE 0.9% 500ML 500 ML ONE; -SODIUM CHLORIDE 0.9% 50ML 50 ML ONE
[2021-10-26 14:00] VITALS: BP 126/74
== END | disposition home or self-care (01) ==
LOC: OR 10:21
PROVIDERS: ATTEND Internal Medicine Gastroenterology
DX: Z09 Encounter for follow-up examination after completed treatment for conditions other than malignant neoplasm (principal); Z86.010 Personal history of colon polyps; K57.30 Diverticulosis of large intestine without perforation or abscess without bleeding; K64.8 Other hemorrhoids; K21.9 Gastro-esophageal reflux disease without esophagitis; I25.810 Atherosclerosis of coronary artery bypass graft(s) without angina pectoris; I10 Essential (primary) hypertension; E11.9 Type 2 diabetes mellitus without complications; Z88.0 Allergy status to penicillin; Z01.810 Encounter for preprocedural cardiovascular examination; Z01.812 Encounter for preprocedural laboratory examination; Z20.822 Contact with and (suspected) exposure to COVID-19; Z86.73 Personal history of transient ischemic attack (TIA), and cerebral infarction without residual deficits; Z86.16 Personal history of COVID-19; Z95.1 Presence of aortocoronary bypass graft
CPT/HCPCS: 36415 ×2; 45378; 82948; 85025; 93005; J2001; J2704; U0002